=== PATIENT | male | born 1950 | race Caucasian/White ===

== ENCOUNTER 2023-03-16 13:42 | Emergency (ER) | payer OTHER, MEDICAID ==
[~2023-03-16] VITALS: Ht 165.1 cm; Wt 77.1 kg
[2023-03-16] MEDS ORDERED: IBUP-1957 PO (16:27)
[2023-03-16 16:33] VITALS: BP 129/70; O2SAT 99
== END 2023-03-16 16:34 | disposition home or self-care (01) ==
LOC: ER 13:53
DX: M24.811 Other specific joint derangements of right shoulder, not elsewhere classified (principal); R51.9 Headache, unspecified; E78.5 Hyperlipidemia, unspecified; Z79.899 Other long term (current) drug therapy
CPT/HCPCS: 70450; 72125; 73030; A4606; A4663